=== PATIENT | female | born 1980 | race Caucasian/White ===

== ENCOUNTER 2018-06-02 12:07 | Emergency (ER) | payer SELFPAY ==
[~2018-06-02] VITALS: Ht 162.6 cm; Wt 60.0 kg
[~2018-06-02 12:07] MED LIST: ADVIL
[2018-06-02] MEDS ORDERED: ONDANSETRON HCL 4MG/2ML INJ IV STA (12:40)
[2018-06-02] MEDS ORDERED: MORPHINE SULFATE 4 MG/ML CPJ (NOT FOR IM USE) IV STA (12:40)
[2018-06-02] MEDS ORDERED: SODIUM CHLORIDE 0.9% 1,000 ML IV ONE (12:40)
[2018-06-02 13:27] LABS: BASOPHILS % 0.4 % (0.0-2.0); EOSINOPHILS % 1.6 % (0.0-5.0); HEMATOCRIT. 34.7 % (36.0-48.0); LYMPHOCYTES % 17.9 % (20.0-50.0); MEAN CORPUSCULAR HEMOGLOBIN 22.7 pg (28.0-32.0); MEAN CORPUSCULAR VOLUME 71.2 fL (81.0-99.0); MEAN PLATELET VOLUME 7.5 fl (7.4-10.4); MONOCYTES % 6.8 % (2.0-8.0); NEUTROPHILS % 73.3 % (40.0-76.0); PLATELET 392 x1000/uL (130-400); RED BLOOD CELL COUNT 4.87 mill/uL (4.2-5.4); RED CELL DISTRIBUTION WIDTH 18.1 % (11.6-14.6)
[2018-06-02 13:33] LABS: CHLORIDE 103 mEq/L (98-107)
[2018-06-02 13:34] LABS: PROTHROMBIN TIME 10.4 sec (9.1-11.1)
[2018-06-02 14:17] LABS: CLARITY URINE CLOUDY (CLEAR); KETONES URINE TRACE (NEGATIVE); LEUKOCYTE ESTERASE URINE 1+ (NEGATIVE); NITRITE URINE POSITIVE (NEGATIVE); PROTEIN URINE 4+ (NEGATIVE); SPECIFIC GRAVITY URINE 1.028 (1.005-1.030); UROBILINOGEN URINE 0.2 E.U./dL (0.2-1.0)
[2018-06-02 14:21] LABS: COLOR URINE BLOODY (YELLOW)
[2018-06-02 14:22] LABS: OCCULT BLOOD URINE 4+ (NEGATIVE)
[2018-06-02] MEDS ORDERED: KETOROLAC 30MG/ML VIAL IV ONE (16:15)
[2018-06-02 17:36] VITALS: BP 122/89
== END 2018-06-02 17:40 | disposition home or self-care (01) ==
LOC: ER 12:13
DX: D25.9 Leiomyoma of uterus, unspecified (principal); N39.0 Urinary tract infection, site not specified
CPT/HCPCS: 36415; 76830; 76856; 80053; 81003; 81025; 83690; 85025; 85610; 87086; 96374; 96375; 99284; J2270; J2405; J7030